=== PATIENT | female | born 1975 | race Two or more races ===

== ENCOUNTER 2024-05-01 14:51 | Emergency (ER) | payer OTHER ==
[~2024-05-01] VITALS: Ht 165.1 cm; Wt 70.0 kg
[2024-05-01 14:52] VITALS: O2SAT 98
[2024-05-01 15:34] LABS: HEMATOCRIT. 38.2 % (36.0-48.0); HEMOGLOBIN. 13.5 g/dL (12.0-16.0); MEAN CORPUSCULAR HEMOGLOBIN 33.1 pg (28.0-32.0); MEAN CORPUSCULAR HGB CONC 35.2 g/dL (31.0-37.0); MEAN CORPUSCULAR VOLUME 93.9 fL (81.0-99.0); MEAN PLATELET VOLUME 7.4 fl (7.4-10.4); PLATELET 379 x1000/uL (130-400); RED BLOOD CELL COUNT 4.07 mill/uL (4.2-5.4); RED CELL DISTRIBUTION WIDTH 12.9 % (11.6-14.6); WHITE BLOOD COUNT 9.1 x1000/uL (4.5-11.0)
[2024-05-01 15:35] LABS: DIFFERENTIAL COMMENT 1
[2024-05-01 15:40] LABS: CHLORIDE 111 mEq/L (98-107); POTASSIUM 3.7 mEq/L (3.5-5.1); SODIUM 141 mEq/L (136-145)
[2024-05-01 15:41] LABS: CALCIUM 9.7 mg/dL (8.7-10.4); CARBON DIOXIDE 24 mEq/L (21-32)
[2024-05-01 15:46] LABS: GLUCOSE 120 mg/dL (70-105); UREA NITROGEN BLOOD 9 mg/dL (9-23)
[2024-05-01 15:48] LABS: ACETAMINOPHEN < 2 ug/mL (10-30)
[2024-05-01 15:50] LABS: ETHANOL BLOOD < 10 mg/dL (<10)
[2024-05-01 15:55] LABS: PLATELET ESTIMATE NORMAL
[2024-05-02 06:03] LABS: ALANINE AMINOTRANSFERASE 15 IU/L (10-49); ALBUMIN 4.4 g/dL (3.2-4.8); ASPARTATE AMINOTRANSFERASE 11 IU/L (<34); BILIRUBIN TOTAL 0.4 mg/dL (0.1-1.0)
[2024-05-02 06:12] LABS: HCG SCREEN NEGATIVE
[2024-05-02 06:16] LABS: BILIRUBIN DIRECT < 0.1 mg/dL (<=3.0)
[2024-05-02 08:25] LABS: CLARITY URINE CLOUDY (CLEAR); COLOR URINE YELLOW (YELLOW); GLUCOSE URINE NEGATIVE (NEGATIVE); KETONES URINE NEGATIVE (NEGATIVE); LEUKOCYTE ESTERASE URINE 2+ (NEGATIVE); NITRITE URINE POSITIVE (NEGATIVE); OCCULT BLOOD URINE 2+ (NEGATIVE); PH URINE 5.5 (4.5-8.0); PROTEIN URINE NEGATIVE (NEGATIVE); SPECIFIC GRAVITY URINE 1.018 (1.005-1.030); UROBILINOGEN URINE 0.2 E.U./dL (0.2-1.0)
[2024-05-02 08:41] LABS: *AMPHETAMINES SCREEN URINE NEGATIVE (NEGATIVE); *BARBITURATES SCREEN URINE NEGATIVE (NEGATIVE); *BENZODIAZEPINES SCREEN URINE NEGATIVE (NEGATIVE)
[2024-05-02 08:42] LABS: *COCAINE SCREEN URINE PRESUMPTIVE POSITIVE (NEGATIVE); CANNABINOID URINE SCREEN NEGATIVE (NEGATIVE); ECSTASY MDMA SCREEN URINE NEGATIVE (NEGATIVE); METHADONE URINE SCREEN NEGATIVE (NEGATIVE); OPIATES URINE SCREEN NEGATIVE (NEGATIVE); PHENCYCLIDINE URINE SCREEN NEGATIVE (NEGATIVE)
[2024-05-02 09:26] LABS: BACTERIA URINE 2+; RBC URINE 0-2 /hpf (0-2); SQUAMOUS EPITHELIAL CELL URINE FEW /lpf (RARE/1+)
[2024-05-02 09:27] LABS: WBC URINE 25-50 /hpf (0-2)
[2024-05-02] MEDS: BENZONATATE 100MG CAPSULE PO ONE (12:10)
[2024-05-02] MEDS: NITROFURANTOIN 100MG M/M CAPSULE PO SCH (12:11)
[2024-05-02] MEDS ORDERED: NITR-87 MT (18:29)
[2024-05-02] MEDS ORDERED: NITROFURANTOIN 100MG M/M CAPSULE PO SCH (21:00)
[2024-05-03 06:39] VITALS: BP 108/66; PULSE 83; RESP 17; TEMP 36.44736; O2SAT 100
== END 2024-05-03 06:51 ==
LOC: ER 14:51
DX: R45.851 Suicidal ideations (principal); F32.A Depression, unspecified; Z20.822 Contact with and (suspected) exposure to COVID-19
CPT/HCPCS: 36415; 80048; 80076; 80305; 80307; 80320; 80329; 81003; 84703; 85025; 87077; 87186; 87426; 99285; G0480

== ENCOUNTER 2025-03-26 14:04 | Emergency (ER) | payer MEDICAID, OTHER ==
[~2025-03-26] VITALS: Ht 167.6 cm; Wt 111.0 kg
[~2025-03-26 14:04] MED LIST: NITR-87 MT
[2025-03-26 14:06] VITALS: BP 128/72; PULSE 82; RESP 16; TEMP 36.7; O2SAT 98
[2025-03-26] MEDS ORDERED: SULF1TAB48 MT (17:58)
[2025-03-26] MEDS ORDERED: IBUP-1455 MT (17:58)
[2025-03-26] MEDS ORDERED: CEPH500T MT (17:58)
== END 2025-03-26 18:44 | disposition home or self-care (01) ==
LOC: ER 14:04
DX: L03.116 Cellulitis of left lower limb (principal); F15.90 Other stimulant use, unspecified, uncomplicated; F32.A Depression, unspecified; F20.9 Schizophrenia, unspecified; F14.90 Cocaine use, unspecified, uncomplicated; Z59.00 Homelessness unspecified; Z79.899 Other long term (current) drug therapy
CPT/HCPCS: 99283

== ENCOUNTER 2025-03-28 10:34 | Emergency (ER) | payer MEDICAID, OTHER ==
[~2025-03-28] VITALS: Ht 172.7 cm; Wt 90.0 kg
[~2025-03-28 10:34] MED LIST changes: +CEPH500T MT; +IBUP-1455 MT; +SULF1TAB48 MT
[2025-03-28 10:36] VITALS: O2SAT 100
[2025-03-28 12:09] LABS: CLARITY URINE CLEAR (CLEAR); COLOR URINE YELLOW (YELLOW); GLUCOSE URINE NEGATIVE (NEGATIVE); KETONES URINE TRACE (NEGATIVE); LEUKOCYTE ESTERASE URINE 2+ (NEGATIVE); NITRITE URINE NEGATIVE (NEGATIVE); OCCULT BLOOD URINE 3+ (NEGATIVE); PH URINE 6.0 (4.5-8.0); PROTEIN URINE TRACE (NEGATIVE); SPECIFIC GRAVITY URINE 1.019 (1.005-1.030); UROBILINOGEN URINE 1.0 E.U./dL (0.2-1.0)
[2025-03-28 12:27] LABS: SQUAMOUS EPITHELIAL CELL URINE FEW /lpf (RARE/1+)
[2025-03-28 12:28] LABS: RBC URINE TNTC /hpf (0-2)
[2025-03-28 12:31] LABS: BACTERIA URINE 2+
[2025-03-28] MEDS ORDERED: PHEN-815 MT (12:53)
[2025-03-28] MEDS ORDERED: NITR-87 MT (12:53)
[2025-03-28 13:03] VITALS: BP 105/55; PULSE 48; RESP 13; TEMP 37.2; O2SAT 99
[2025-03-28] MEDS: NITROFURANTOIN 100MG M/M CAPSULE PO ONE (13:37)
== END 2025-03-28 13:51 | disposition home or self-care (01) ==
LOC: ER 10:34
DX: N39.0 Urinary tract infection, site not specified (principal); R32 Unspecified urinary incontinence; F20.9 Schizophrenia, unspecified; F31.9 Bipolar disorder, unspecified
CPT/HCPCS: 81003; 99283